=== PATIENT | female | born 1955 | race Caucasian/White ===

== ENCOUNTER 2023-06-16 09:00 | Outpatient (RCR) | payer BC, SELFPAY ==
--- NOTE | 2023-05-19 15:20 | HP.PTEVAL_ITS ---
Patient's Visit Information Visit Information Visit Information: SHELBY ORTIZ is a 67 year old F referred to Physical Therapy by Dr. Luis Mccartney DO with a diagnosis of ADHESIVE CAPSULITIS, IMPINGEMENT SYNDROME AND RTC STRAIN R SHLD. Date of Evaluation: 05/19/23 Physical Therapist: Shira Ding PT, Cert MDT Visit Plan Frequency: 2x /Week Duration: 3-4 WKS Plan: R SCAPULAR STRENGTHENING/STABILIZATION TRAINING. R UE ROM, STRETCHING AND STRENGTHENING. HEP INSTRUCTION POSTURE TRAINING. 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 Present symptoms: R SHLD AND UPPER ARM PAIN. R ARM WEAKNESS. PATIENT REPORTS SHE HAS A FROZEN SHLD AND HER ROTATOR CUFF ISN'T TORN. PATIENT DENIES R UE NUMBNESS AND TINGLING. PATIENT REPORTS WHEN HER SHLD PAIN GETS BAD SOMETIMES SHE GETS R NECK PAIN AND A HEADACHE TOO. SHE STATES HAVING HEAD AND NECK PAIN RECENT THIS MORNING. INTERMITTENT R SHLD popping. PATIENT DENIES PAIN WITH THE POPPING BUT STATES IT DIDN'T POP BEFORE SHE FELL. Present since: MAR 07 2033 Pain Scale: Worst -5/10 Least - 2/10 Currently: 04/22 Commenced as a result of: FALL - SLIPPED ON ICE AND FELL ON CONCRETE. FELL BACKWARDS. FX'D SHLD IN THE FRONT. REPORTS THE FRACTURE IS HEALED UP. PATIENT REPORTS LIGHT CONCUSSION AND WHIPLASH FROM THE FALL TOO THAT SHE HAS RECOVERED FROM. Worse: LIFTING, STIRRING, RUNNING THE SWEEPING, COMBING HAIR, MAKING BED/TOSSING COVERS, CLEANING WINDOWS. Better: RESTING IT, COTISONE SHOT - HELPED A LOT 05/10/23 Disturbed sleep: NO Previous history/Previous treatment: PATIENT DENIES R SHLD PROBLEMS BEFORE THE FALL IN FEB 2023. AFTER THE FALL, PATIENT REPORTS SHE DIDN'T GO TO THE DOCTOR (PCP) FOR A COUPLE WEEKS AND DIDN'T REALIZE HER SHLD WAS BROKEN. PCP REFERRED HER TO [facility]. IN THE MEAN TIME SHE HAD MASSAGE THERAPY ABOUT 3 TIMES. SHE STATES SHE DIDN'T HAVE X-RAYS UNTIL SHE SAW DR. MCCARTNEY FOR THE FIRST TIME WHICH WAS APPARENTLY 04/26/23 AND HER FX WAS HEALED BY THAT TIME. SHE THEN HAD AN MRI AND ON 05/10/23: CORTISONE INJECTION, MELOXICAM AND PT ORDER. PATIENT DENIES ANY PRIOR PT FOR HER SHLD. STATES SHE CAN'T TAKE THE MELOXICAM BECAUSE IT WAS KEEPING HER FROM SLEEPING. Dizziness: NO Tinnitus: NO Nausea: NO Shortness of Breath: NO Difficulty Swollowing: NO Gait: NORMAL Accidents: NO Unexplained weight loss: NO Imaging: R SHLD MRI 05/05/23: MODERATE TENDINOSIS SUPRASPINATUS AND SUBSCAPULARIS INSERTIONS. SILT-LIKE FRAYNG DISTALLY. MILD BRUSITIS. NO FULL THICKNESS CUFF TEAR. NO ten osseous avulsion. FRAYED AND WORN SUPERIOR LABRUM. COMBINATION OF ADHESIVE AND NON-ADHESIVE CAPSULITIS. PMH/Recent major surgery: UNREMARKABLE. Objective Objective: Sitting Posture/Standing Posture: POOR. FH. RSH'S. Active Correction of posture: WORSE. ABLE TO PARTIALLY CORRECT. DOES NOT MAINTAIN. Other Observations: INDEP GAIT AND TRANSFERS Sensory deficit: BHAVIK UE LIGHT ROM deficit: L UE WFL. R UE AROM WFL. R SHLD FLEX IN SUPINE = 170 DEG WITH ERP. ER = 90 DEG AND IR = 70 DEG WITH ERP. IR/ER ALSO TESTED IN SUPINE WITH 90 DEG ABD. SUPINE PASSIVE R SHLD ABD = 165 DEG WITH ERP. Motor deficit: L UE 5/5. R SHLD FLEX 4/5, ABD 4/5, IR 5/5, ER 4/5, ELBOW 5/5. L SUPERVISOR LENS GENERATING 27 LBS, R 31 LBS. Cervical Mvmt Loss: Flex: NIL Pro: NIL Ext: MOD - PULLS IN R SHLD Ret: ZAKIYA RSB: MOD LSB: MOD R Rot: MOD L Rot: MOD PATIENT C/O STIFFNESS AND SOME PAIN IN NECK WITH ROM ALL PLANES REPORTING SHE HAD SOME PROBLEMS IN HER NECK EVEN BEFORE THE FALL. Postural strength: POOR. Balance/Special Test Scores Quick DASH Score: 65.9075 Goals Goal 1:: RESTORE FULL PAINFREE PASSIVE ROM OF R UE TO EASE ADL'S Goal Time Frame: 4-6 Weeks Goal 2:: INCREASE R UE STRENGTH TO 5/5 WITH MMT'ING WITHOUT C/O PAIN. Goal Time Frame: 4-6 Weeks Goal 3:: PATIENT WILL SCORE AT LEAST 8 POINTS BETTER ON QUICK DASH QUESTIONNAIRE Goal Time Frame: 4-6 Weeks Goal 4:: PATIENT WILL REPORTS RETURN TO PLOF WITH R UE WITHOUT PAIN OR POPPING AT LEAST 75% OF THE TIME Goal Time Frame: 4-6 Weeks Goal 5:: INDEP HEP Goal Time Frame: 4-6 Weeks Rehabilitation Potential Physical Therapy Diagnosis: NECK STIFFNESS AND R SHLD WEAKNESS AND STIFFNESS. Rehabilitation Potential: Excellent Anticipated Interventions Patient/Client Instruction: Educate patient on: Condition, Plan of Care and Risk Factors For the Purpose of:: To improve self management Therapeutic Exercise to Include: Strength training, Postural training, Flexibilty training, Passive ROM, Active ROM and Scapular Strength/Stabilization For the Purpose of:: To decrease pain, To increase ROM, To improve muscle performance and motor function, To increase tolerance to activity/condition/position and To improve ability of physical actions for home/community/work/leisure Manual Therapy Techniques to Include: Mobilization and Passive ROM For the Purpose of:: To decrease pain and To increase ROM Cryotherapy (ice pack, ice massage): Yes Thermo therapy (hot pack): Yes Ultrasound (thermal/non thermal): Yes (1.3 W/CM2 X 8 MIIN TO R SHLD) For the Purpose of:: To decrease pain, To decrease swelling/inflammation and To improve nutrient delivery to tissue Text: Thank you for the opportunity to evaluate your patient. For Medicare and Medicare HMO plans, please review the plan of care and approve it. It will need to be FAXED BACK to us at [phone] for Medicare purposes. For Medicare only, by signing this I certify the plan of care. Please let me know if there are questions or concerns regarding this plan of care. Physician Signature: Date:
--- NOTE | 2023-06-16 09:30 | HP.PTDCSUM ---
Discharge Summary D/C summary: It has been my pleasure to treat SHELBY ORTIZ referred by Dr. Luis Mccartney DO, with the diagnosis of ADHESIVE CAPSULITIS, IMPINGEMENT SYNDROME AND RTC STRAIN R SHLD for a total of 7 visit(s). Discharge Date: 06/16/23 Please see the following information for a summary of their discharge status. Subjective Subjective: Not sure she is getting any better. Pain in R shoulder persists intermittent with using R UE. No currently in pain at rest. Pain is 0-5/10. Sleeping is not interrupted anymore. Dr. Mccartney put cortisone shot which did not help. Activities: normal at home but avoids weed eating and lifting water jug due to pain. MRI was OK. YTB for er at home and OTB for rows and others. Pain R shoulder: Pain Intensity (Out of 10): 5 Overall Improvement % Improvement: 0 Objective Objective/Function: 155 flexion adn abduction but pain at end range on R. 78 er with pain at end range, IR hurts at end range but WFL. Normal scapular mobility comparable to L. strength is 3+ R shoulder flexion and 4- L, abduction is the same 3+ and 4-, both cause some pain. er 3+ R and 4 L and IR 4- R and 4 L. Biceps and triceps are symmetrical 4- B. Max tender at supraspinatus insertion on R side. Goals Goal 1:: RESTORE FULL PAINFREE PASSIVE ROM OF R UE TO EASE ADL'S Goal Progress: Not Progressing Goal 2:: INCREASE R UE STRENGTH TO 5/5 WITH MMT'ING WITHOUT C/O PAIN. Goal Progress: Not Progressing Goal 3:: PATIENT WILL SCORE AT LEAST 8 POINTS BETTER ON QUICK DASH QUESTIONNAIRE Goal Progress: Progressing Goal 4:: PATIENT WILL REPORTS RETURN TO PLOF WITH R UE WITHOUT PAIN OR POPPING AT LEAST 75% OF THE TIME Goal 5:: INDEP HEP Goal Progress: Progressing Plan Plan: d/c, pt back to doctor due to lack of improvement with pain and to seek other options, she will see him next week and continue HEP. D/C Information Discharge Comments: To doctor next week for other options. d/c sentence: If there are questions or concerns regarding this patient's physical therapy, please feel free to call me at [phone]. Thank you for the referral of this patient. Sincerely, Bryce Ellis, DPT, OCS, CSCS Balance/Gait/Functional tests Balance/Special Test Scores Quick DASH Score: 45.4525 Improvement % Improvement: 0
== END 2023-06-16 10:25 | disposition home or self-care (01) ==
LOC: PT 09:00
PROVIDERS: PCP Nurse Practitioner Family; Referring Provider Student in an Organized Health Care Education/Training Program; Visit Provider Student in an Organized Health Care Education/Training Program
DX: M75.01 Adhesive capsulitis of right shoulder (principal); M75.41 Impingement syndrome of right shoulder; S46.011D Strain of muscle(s) and tendon(s) of the rotator cuff of right shoulder, subsequent encounter
CPT/HCPCS: 97035; 97110; 97162; 97530

== ENCOUNTER → 2023-10-30 | Outpatient (CLI) | payer BC, SELFPAY ==
[2023-10-30 11:14] LABS: Absolute Lymphocyte Count 0.88 X10^3/uL (0.83-4.51); Absolute Neutrophil Count 2.9 X10^3/uL (2.0-7.7); Basophil# 0.07 X10^3/uL; Basophil% 1.5 % (0-1); Eosinophil# 0.28 X10^3/uL; Hematocrit 38.2 % (37-47); Lymphocyte # 0.88 X10^3/ul (0.83-4.51); Lymphocyte % 18.9 % (19-41); Mean Corp Hgb Conc 31.4 g/dL (32-36); Mean Platelet Vol. 11.2 fl (6.2-12.0); Monocyte# 0.47 X10^3/uL; Monocyte% 10.1 % (0-10); NRBC Flagged by Analyzer 0 % (0-5); Neutrophil # 2.93 X10^3/uL (2.7-7.7); Neutrophil % 63.1 % (47-70); Platelet Count 198 K/mm3 (150-450); RBC Distribution Width CV 13.4 % (11.6-14.6); Red Blood Count 4.29 M/mm3 (4.2-5.4); White Blood Count 4.7 K/mm3 (4.4-11.0)
[2023-10-30 11:36] LABS: Anion Gap 7 (5-15); BUN 16 mg/dL (7-18); BUN/Creat Ratio 22.7 RATIO (10-20); Calcium,Total 9.4 mg/dL (8.5-10.1); Chloride 104 mmol/L (98-107); Creatinine, Serum 0.71 mg/dL (0.55-1.02); EST Glomerular Filtration Rate 88 mL/min (>60); Est Glom Filt Rate - Afr Amer 106 mL/min (>60); Glucose 96 mg/dL (74-106); Potassium 4.4 mmol/L (3.5-5.1); Sodium Level 139 mmol/L (136-145)
== END | disposition home or self-care (01) ==
LOC: LAB 10:46
PROVIDERS: PCP Nurse Practitioner Family; Referring Provider Physician Assistant Surgical; Visit Provider Physician Assistant Surgical
DX: Z01.818 Encounter for other preprocedural examination (principal); Z01.810 Encounter for preprocedural cardiovascular examination
CPT/HCPCS: 36415; 80048; 85025

== ENCOUNTER 2024-01-31 09:00 | Outpatient (RCR) | payer BC, SELFPAY ==
--- NOTE | 2023-11-29 12:35 | HP.PTEVAL_ITS ---
Patient's Visit Information Visit Information Visit Information: SHELBY ORTIZ is a 68 year old F referred to Physical Therapy by LIZBET Kelly with a diagnosis of . Date of Evaluation: 11/29/23 Physical Therapist: Milton Pete, PT, Cert MDT, OCS Visit Plan Frequency: 2x /Week Duration: 10 WEEKS Plan: S/P ARTHROSCOPIC SPUR REMOVED BICEP TENODESIS NOV 14 SLING 2 MORE WEEKS THEN D/C DYLAN NO BICEP ACTIVATION /LOADING 8 WEEKS ER LIMITED FOR 4 WEEKS SEE PRACTICE GUIDELINES BICEPS TENO PT INTERVENTIONS MANUAL THERAPY PHASE 1 PROM 4 WEEKS ,PHASE 2 AAROM 4WEEKS THEN STRENGTHENING RIGHT SHOULDER Subjective Subjective: This 68 y/o female presents to physical therapy with left shoulder arthroscopic remove spur and bicep tenodesis on Nov [address] Mccartney at [facility].Patient d/c DOS with arm sling with ball. Patient seen DR 2 weeks post op. Patient to continue with sling for 2 weeks then wean as tolerated. Patient RTD Dec 28. Patient has patient moving elbow. Patient has pain. Stopped medication oxycodone just inbuprofron. Patient denies paresthesia/tingling- Patient sleeping okay. Patient injury right shoulder from fall in Feb and tried PT but did not help. Patient PRP in July. Patient condition surgery affects all self hygiene/ADLS and QOL. Patient goals to get full use of right . R SHLD MRI 05/05/23: MODERATE TENDINOSIS SUPRASPINATUS AND SUBSCAPULARIS INSERTIONS. SILT-LIKE FRAYNG DISTALLY. MILD BRUSITIS. NO FULL THICKNESS CUFF TEAR. NO ten osseous avulsion. FRAYED AND WORN SUPERIOR LABRUM. SOCIAL: VOCATION: Bakery Pain Right Shoulder: Pain Intensity (Out of 10): 5 Pain Intensity Range: 10 Objective Objective: POSTURE: mild forward posture INCISION: well approximated sutures NEURO: denies paresthesia/tingling PROM: shoulder flexion ~ 115 degrees ,abduction 110 degrees, ER 40 degrees AAROM: elbow flexion 5-120 degrees MMT: 0 peak force Balance/Special Test Scores Quick DASH Score: 82.5000 Goals Goal 1:: Patient to be I with HEP for shoulder surgery Goal Time Frame: 8-12 Weeks Goal 2:: Patient to improve AROM shoulder flexion /abduction by 150 degrees and ER 90 degrees and I to put on coat. Goal Time Frame: 8-12 Weeks Goal 3:: Patient to improve peak force RTC and deltoid by 10-15 # to improve function and and pain Goal Time Frame: 8-12 Weeks Goal 4:: Patient to improve quick dash score by 10 points to improve QOL Goal Time Frame: 8-12 Weeks Goal 5:: Patient to demonstrate 50% improvement with less pain and improved function and ADLS Goal Time Frame: 8-12 Weeks Goal 6:: Patient to return to prior level of function with min lmations with housework tasks and ADLS Goal Time Frame: 8-12 Weeks Rehabilitation Potential Physical Therapy Diagnosis: Patient underwent s/p arthroscopy removed spur and biceps tenodesis Oct 2 with decrease ROM,weakness ,decrease strength and pain impairs ADLS and housework tasks thus benefit from skilled Rehabilitation Potential: Good Anticipated Interventions Patient/Client Instruction: Educate patient on: Condition and Plan of Care For the Purpose of:: To decrease pain, To increase ROM, To improve muscle performance and motor function, To improve ability to perform ADL's, To increase tolerance to activity/condition/position, To improve performance and inde pendence with ADL's, To decrease level of supervision to perform tasks, To improve ability of physical actions for home/community/work/leisure, To improve health of tissue, To decrease soft tissue restriction and To improve tolerance to ADL's Therapeutic Exercise to Include: Strength training, Passive ROM, Active ROM and Scapular Strength/Stabilization Comment: SEE GUIDELINES RTC For the Purpose of:: To decrease pain, To increase ROM, To improve muscle performance and motor function, To improve ability to perform ADL's, To increase tolerance to activity/condition/position, To improve performance and independence with ADL's, To improve ability of physical actions for home/community/work/leisure, To improve health of tissue, To decrease soft tissue restriction, To increase flexibility/ROM and To improve tolerance to ADL's Manual Therapy Techniques to Include: Passive ROM For the Purpose of:: To decrease pain, To increase ROM, To improve health of tissue, To decrease soft tissue restriction and To increase flexibility/ROM Text: Thank you for the opportunity to evaluate your patient. For Medicare and Medicare HMO plans, please review the plan of care and approve it. It will need to be FAXED BACK to us at [phone] for Medicare purposes. For Medicare only, by signing this I certify the plan of care. Please let me know if there are questions or concerns regarding this plan of care. Physician Signature: Date:
--- NOTE | 2023-11-29 12:43 | HP.PTEVAL ---
Patient's Visit Information Visit Information Visit Information: SHELBY ORTIZ is a 68 year old F referred to Physical Therapy by LIZBET Kelly with a diagnosis of STRAINOF MUSCLE/TENDON LONG HEAD BICEP ,RIGHT,IMPINGEMENT SYNDROME. Date of Evaluation: 11/29/23 Physical Therapist: Milton Pete, PT, Cert MDT, OCS Visit Plan Frequency: 2x /Week Duration: 10 WEEKS Plan: S/P ARTHROSCOPIC SPUR REMOVED BICEP TENODESIS NOV 14 SLING 2 MORE WEEKS THEN D/C DYLAN NO BICEP ACTIVATION /LOADING 8 WEEKS ER LIMITED FOR 4 WEEKS SEE PRACTICE GUIDELINES BICEPS TENO PT INTERVENTIONS MANUAL THERAPY PHASE 1 PROM 4 WEEKS ,PHASE 2 AAROM 4WEEKS THEN STRENGTHENING RIGHT SHOULDER Subjective Subjective: This 68 y/o female presents to physical therapy with left shoulder arthroscopic remove spur and bicep tenodesis on Nov [address] Mccartney at [facility].Patient d/c DOS with arm sling with ball. Patient seen DR 2 weeks post op. Patient to continue with sling for 2 weeks then wean as tolerated. Patient RTD Dec 28. Patient has patient moving elbow. Patient has pain. Stopped medication oxycodone just inbuprofron. Patient denies paresthesia/tingling- Patient sleeping okay. Patient injury right shoulder from fall in Feb and tried PT but did not help. Patient PRP in July. Patient condition surgery affects all self hygiene/ADLS and QOL. Patient goals to get full use of right . R SHLD MRI 05/05/23: MODERATE TENDINOSIS SUPRASPINATUS AND SUBSCAPULARIS INSERTIONS. SILT-LIKE FRAYNG DISTALLY. MILD BRUSITIS. NO FULL THICKNESS CUFF TEAR. NO ten osseous avulsion. FRAYED AND WORN SUPERIOR LABRUM. SOCIAL: VOCATION: Bakery Pain Right Shoulder: Pain Intensity (Out of 10): 5 Pain Intensity Range: 10 Objective Objective: POSTURE: mild forward posture INCISION: well approximated sutures NEURO: denies paresthesia/tingling PROM: shoulder flexion ~ 115 degrees ,abduction 110 degrees, ER 40 degrees AAROM: elbow flexion 5-120 degrees MMT: 0 peak force Balance/Special Test Scores Quick DASH Score: 82.5000 Goals Goal 1:: Patient to be I with [facility] for shoulder surgery Goal Time Frame: 8-12 Weeks Goal 2:: Patient to improve AROM shoulder flexion /abduction by 150 degrees and ER 90 degrees and I to put on coat. Goal Time Frame: 8-12 Weeks Goal 3:: Patient to improve peak force RTC and deltoid by 10-15 # to improve function and and pain Goal Time Frame: 8-12 Weeks Goal 4:: Patient to improve quick dash score by 10 points to improve QOL Goal Time Frame: 8-12 Weeks Goal 5:: Patient to demonstrate 50% improvement with less pain and improved function and ADLS Goal Time Frame: 8-12 Weeks Goal 6:: Patient to return to prior level of function with min lmations with housework tasks and ADLS Goal Time Frame: 8-12 Weeks Rehabilitation Potential Physical Therapy Diagnosis: Patient underwent s/p arthroscopy removed spur and biceps tenodesis Oct 2 with decrease ROM,weakness ,decrease strength and pain impairs ADLS and housework tasks thus benefit from skilled Rehabilitation Potential: Good Anticipated Interventions Patient/Client Instruction: Educate patient on: Condition and Plan of Care For the Purpose of:: To decrease pain, To increase ROM, To improve muscle performance and motor function, To improve ability to perform ADL's, To increase tolerance to activity/condition/position, To improve performance and independence with ADL's, To decrease level of supervision to perform tasks, To improve ability of physical actions for home/community/work/leisure, To improve health of tissue, To decrease soft tissue restriction and To improve tolerance to ADL's Therapeutic Exercise to Include: Strength training, Passive ROM, Active ROM and Scapular Strength/Stabilization Comment: SEE GUIDELINES RTC For the Purpose of:: To decrease pain, To increase ROM, To improve muscle performance and motor function, To improve ability to perform ADL's, To increase tolerance to activity/condition/position, To improve performance and independence with ADL's, To improve ability of physical actions for home/community/work/leisure, To improve health of tissue, To decrease soft tissue restriction, To increase flexibility/ROM and To improve tolerance to ADL's Manual Therapy Techniques to Include: Passive ROM For the Purpose of:: To decrease pain, To increase ROM, To improve health of tissue, To decrease soft tissue restriction and To increase flexibility/ROM Text: Thank you for the opportunity to evaluate your patient. For Medicare and Medicare HMO plans, please review the plan of care and approve it. It will need to be FAXED BACK to us at [phone] for Medicare purposes. For Medicare only, by signing this I certify the plan of care. Please let me know if there are questions or concerns regarding this plan of care. Physician Signature: Date:
--- NOTE | 2024-01-31 09:42 | HP.PTDCSUM ---
Discharge Summary D/C summary: It has been my pleasure to treat SHELBY ORTIZ referred by LIZBET Kelly, with the diagnosis of STRAINOF MUSCLE/TENDON LONG HEAD BICEP ,RIGHT,IMPINGEMENT SYNDROME for a total of 14 visit(s). Discharge Date: Please see the following information for a summary of their discharge status. Subjective Subjective: Doing well ,ready to be D/C Pain Right Shoulder: Pain Intensity (Out of 10): 0 Overall Improvement % Improvement: 85 Objective Objective/Function: AROM: shoulder flexion 150 degrees ,abduction 150 degrees ,IR L1 ,ER 90 degrees MMT: 4/5 strength deltoid/RTC Goals Goal 1:: Patient to be I with HEP for shoulder surgery Goal 2:: Patient to improve AROM shoulder flexion /abduction by 150 degrees and ER 90 degrees and I to put on coat. Goal 3:: Patient to improve peak force RTC and deltoid by 10-15 # to improve function and and pain Goal 4:: Patient to improve quick dash score by 10 points to improve QOL Goal 5:: Patient to demonstrate 50% improvement with less pain and improved function and ADLS Goal 6:: Patient to return to prior level of function with min lmations with housework tasks and ADLS Plan Plan: D/C TO HEP D/C Information d/c sentence: If there are questions or concerns regarding this patient's physical therapy, please feel free to call me at [phone]. Thank you for the referral of this patient. Sincerely, Milton Pete, PT, Cert MDT, OCS Balance/Gait/Functional tests Balance/Special Test Scores Quick DASH Score: 2.2725 Improvement % Improvement: 85
== END 2024-01-31 19:00 | disposition home or self-care (01) ==
LOC: PT 09:00
PROVIDERS: PCP Nurse Practitioner Family; Referring Provider Physician Assistant Surgical; Visit Provider Physician Assistant Surgical
DX: S46.111D Strain of muscle, fascia and tendon of long head of biceps, right arm, subsequent encounter (principal); M75.41 Impingement syndrome of right shoulder; M19.012 Primary osteoarthritis, left shoulder
CPT/HCPCS: 97110; 97140; 97162

== ENCOUNTER 2024-08-28 10:00 | Outpatient (RCR) | payer MEDICARE, OTHER, SELFPAY ==
--- NOTE | 2024-06-17 10:01 | HP.PTEVAL_ITS ---
Patient's Visit Information Visit Information Visit Information: SHELBY ORTIZ is a 68 year old F referred to Physical Therapy by Dr. Luis Mccartney DO with a diagnosis of R meniscectomy DOS 06/12/24. Date of Evaluation: 06/17/24 Physical Therapist: Jimmy Manjarrez DPT Visit Plan Frequency: 2x /Week Duration: 6 Weeks Plan: 1) Progress R knee ROM, HS length and edema control 2) add in RLE isometrics progressing to full strength as tolerated 3) ice/vaso for pain control 4) address gait mechanics as needed HEP AT IE: quad sets, HS stretch, heel prop, heel slides with towel, LAQ. ice and elevate frequently. Subjective Subjective: Pt. is here today for her initial evaluation with diagnosis of R meniscectomy. DOS: . Pt. arrives without AD with good tolerance to WBing. Pt. reports doing her quad sets and icing at home. Pt. reports having 4/10 pain in her R knee today. Pt. reports no mech of injury. Pt. reports icing and elevating at home and frequently. Pt. denies N/T. No calf pain noted. Pt. reports having difficulty sleeping, her pain tends to wake her up frequently at night. 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 Pain R medial knee: Pain Intensity (Out of 10): 4 Pain Intensity Range: 2 and 7 Objective Objective: POSTURE: Pt. has slight increased wt. shift to L side in stance. Lacks TKE on RLE PALPATION: Pt. has healing 2 port holes. No signs of infection. 3cm difference in circumference at mid patella from R to L. NEURO: Normal sensation throughout BLEs. 2+ achilles DTR. ROM: R knee 0-4-81deg. Pt. has normal HS length MMT: R knee: ext 3+/5, flexion 4-/5; hip: flex 4/5, abd 4/5. GAIT: Pt. ambulates without AD. Pt. has decreased step length bilaterally. She lack TKE on R side and limited knee flexion during swing. Pt. reports increased pain, but not severe during stance phase on R side. Balance/Special Test Scores Lower Extremity Functional Score: 21 Goals Goal 1:: LTG: Pt. to be I wit HEP. Goal Time Frame: 4-6 Weeks Goal 2:: STG: Pt. to have increased R knee ROM to 0-0-120deg. Goal Time Frame: 2-4 Weeks Goal 3:: LTG: Pt. to have full R knee ROM without increase in symptoms. Goal Time Frame: 4-6 Weeks Goal 4:: STG: Pt. to sleep throughout the night without increase in R knee pain. Goal Time Frame: 2-4 Weeks Goal 5:: LTG: Pt. to have full 5/5 strength throughout RLE. Goal Time Frame: 4-6 Weeks Goal 6:: LTG: Pt. to have normal gait pattern without increase in R knee pain. Goal Time Frame: 4-6 Weeks Rehabilitation Potential Physical Therapy Diagnosis: Pt. has signs and symptoms consistent with R meniscectomy DOS 06/12/24. Pt. has marked hypomobility, weakness, increased pain and difficulty with gait. Pt. would benefit from PT to work on her ROM progressing strength and decreasing her R knee edema. All to progress back to all household and recreational activities Rehabilitation Potential: Excellent Anticipated Interventions Patient/Client Instruction: Educate patient on: Condition, Plan of Care, Risk Factors and Benefits of Fitness Program For the Purpose of:: To facilitate caregiver knowledge, To improve self management, To prevent re-injury, To improve ability to perform tasks related to life management and To improve tolerance to ADL's Therapeutic Exercise to Include: Strength training, Power training, Endurance training, Balance training, Postural training, Flexibilty training, Gait and locomotor training, Passive ROM and Active ROM For the Purpose of:: To decrease pain, To increase ROM, To improve nutrient delivery to tissue, To increase oxygenation perfusion, To improve muscle performance and motor function, To improve ability to perform ADL's, To improve gait and locomotor functions, To improve health of tissue, To decrease soft tissue restriction, To increase flexibility/ROM and To improve endurance Cryotherapy (ice pack, ice massage): Yes For the Purpose of:: To decrease pain, To decrease swelling/inflammation, To increase ROM and To improve nutrient delivery to tissue Text: Thank you for the opportunity to evaluate your patient. For Medicare and Medicare HMO plans, please review the plan of care and approve it. It will need to be FAXED BACK to us at [phone] for Medicare purposes. For Medicare only, by signing this I certify the plan of care. Please let me know if there are questions or concerns regarding this plan of care. Physician Signature: Date:
--- NOTE | 2024-08-07 10:28 | HP.PTREVAL_ITS ---
Re-Evaluation Intro: Dr. Luis Mccartney, DO, It has been my pleasure to treat SHELBY ORTIZ over the last 12 visits for R meniscectomy DOS 06/12/24. Please see the progress note below for an update on the physical therapy plan of care! Subjective Subjective: Pt. reports overall doing better. She is having some pain today 3- 4/10 with waking up. After doing exercises it seems to improve. Objective Objective/Function: ROM: 0-0-130deg. Pt. did require slight over pressure to get full extension. Slightly tight there. MMT: RLE: hip: flexion 18.9#, abd 20.0#, ext 13.0#; knee: ext 19.3#, flex 15..8# LLE: hi: flexion 22.4#, abd 29.0#, ext 18.0#; knee: ext 25.1#, flex 18.5# GAIT: Pt. is ambulating well without issues. She does report some pain, but no marked antalgic pattern STAIRS: no HR with reciprocal pattern. Slight increase in symptoms with R loading during descending. Overall pt is doing better. She still has some marked weakness from R to L, but has imrpoved. I would like her to be able to get full extension with ease as well. Plan Plan Plan: Cont. to work on R knee extension in order to get full extension without pain or restriction. COnt. to with progressive strengthening. Extended POC x2 per week for 3 weeks to work on the above. Balance/Gait/Functional tests Balance/Special Test Scores Lower Extremity Functional Score: 46 30 Second Chair Rise Test Seconds: 11 Goals Goals Goal 1:: LTG: Pt. to be I wit HEP. Goal Time Frame: 4-6 Weeks Goal Progress: Goal Met Goal 2:: STG: Pt. to have increased R knee ROM to 0-0-120deg. Goal Time Frame: 2-4 Weeks Goal Progress: Progressing Goal 3:: LTG: Pt. to have full R knee ROM without increase in symptoms. Goal Time Frame: 4-6 Weeks Goal Progress: Progressing Goal 4:: STG: Pt. to sleep throughout the night without increase in R knee pain. Goal Time Frame: 2-4 Weeks Goal Progress: Goal Met Goal 5:: LTG: Pt. to have full 5/5 strength throughout RLE. Goal Time Frame: 4-6 Weeks Goal Progress: Progressing Goal 6:: LTG: Pt. to have normal gait pattern without increase in R knee pain. Goal Time Frame: 4-6 Weeks Goal Progress: Goal Met Anticipated Interventions Anticipated Interventions Patient/Client Instruction: Educate patient on: Condition, Plan of Care, Risk Factors and Benefits of Fitness Program For the Purpose of:: To facilitate caregiver knowledge, To improve self management, To prevent re-injury, To improve ability to perform tasks related to life management and To improve tolerance to ADL's Therapeutic Exercise to Include: Strength training, Power training, Endurance training, Balance training, Postural training, Flexibilty training, Gait and locomotor training, Passive ROM and Active ROM For the Purpose of:: To decrease pain, To increase ROM, To improve nutrient delivery to tissue, To increase oxygenation perfusion, To improve muscle performance and motor function, To improve ability to perform ADL's, To improve gait and locomotor functions, To improve health of tissue, To decrease soft tissue restriction, To increase flexibility/ROM and To improve endurance Cryotherapy (ice pack, ice massage): Yes For the Purpose of:: To decrease pain, To decrease swelling/inflammation, To increase ROM and To improve nutrient delivery to tissue Re-Evaluation Ending Re-evaluation ending: Please do not hesitate to contact me at [phone] by phone or if you have questions or concerns regarding this new plan of care! Sincerely, Jimmy Manjarrez DPT
--- NOTE | 2024-08-28 10:32 | HP.PTDCSUM ---
Discharge Summary D/C summary: It has been my pleasure to treat SHELBY ORTIZ referred by Dr. Luis Mccartney DO, with the diagnosis of R meniscectomy DOS 06/12/24 for a total of 18 visit(s). Discharge Date: 08/28/24 Please see the following information for a summary of their discharge status. Subjective Subjective: Pt. reports having 1/10 pain currently. Pt. reports being 80% better overall. Pt. is back to doing all of her house work and activities without much limitations. Pain R medial knee: Pain Intensity (Out of 10): 1 Overall Improvement % Improvement: 75 Objective Objective/Function: ROM: R knee 0-0-126deg MMT: RLE: hip: Flex 31.3#, abd 48.6#; knee: ext 31.4#, flex 29.8# LLE: hip: flexion 37.2#, abd 46.2#; knee: ext 42.1#, flex 30.3# TUG 9.48sec no AD GAIT: pt. has normal gait pattern without issues. STAIRS: normal without issues. I gave her an HEP working on further strengthening to complete I. PT. will be DC from PT at this point in time. Goals Goal 1:: LTG: Pt. to be I wit HEP. Goal Progress: Goal Met Goal 2:: STG: Pt. to have increased R knee ROM to 0-0-120deg. Goal Progress: Goal Met Goal 3:: LTG: Pt. to have full R knee ROM without increase in symptoms. Goal Progress: Goal Met Goal 4:: STG: Pt. to sleep throughout the night without increase in R knee pain. Goal Progress: Goal Met Goal 5:: LTG: Pt. to have full 5/5 strength throughout RLE. Goal Progress: Goal Met Goal 6:: LTG: Pt. to have normal gait pattern without increase in R knee pain. Goal Progress: Goal Met Plan Plan: Pt. has met all goals and will be DC from PT at this point in time. D/C Information d/c sentence: If there are questions or concerns regarding this patient's physical therapy, please feel free to call me at [phone]. Thank you for the referral of this patient. Sincerely, Jimmy Mishra Sipos, DPT Balance/Gait/Functional tests Balance/Special Test Scores Lower Extremity Functional Score: 65 TUG Test Time Seconds: 9.48 Tug Test: <10 sec.=free mobile 30 Second Chair Rise Test Seconds: 13 Improvement % Improvement: 75
== END 2024-08-28 19:00 | disposition home or self-care (01) ==
LOC: PT 10:00
PROVIDERS: PCP Nurse Practitioner Family; Referring Provider Student in an Organized Health Care Education/Training Program; Visit Provider Student in an Organized Health Care Education/Training Program
DX: S83.231D Complex tear of medial meniscus, current injury, right knee, subsequent encounter (principal); M17.11 Unilateral primary osteoarthritis, right knee
CPT/HCPCS: 97016; 97110; 97161; 97530